=== PATIENT | male | born 1990 | race Caucasian/White ===

== ENCOUNTER 2017-09-07 00:30 | Emergency (ER) | payer MEDICAID ==
[~2017-09-07] VITALS: Ht 188 cm; Wt 137.9 kg
[2017-09-07 00:36] VITALS: BP 151/101
--- NOTE | 2017-09-07 00:40 | NUR ---
AMBULATED TO ER BED 6
--- NOTE | 2017-09-07 00:45 | NUR ---
DR. FOURNIER EVALUATING PATIENT AT BEDSIDE.
--- NOTE | 2017-09-07 00:46 | NUR ---
PATIENT IS A 27 Y/O MALE WHO PRESENTS TO THE ED C/O LEFT EYE PAIN. PT STATES, "MY EYE HAS BEEN HURTING SINCE SUNDAY." PT REPORTS 10/10 SHARP PAIN THAT DOES NOT RADIATE. NOTED ERYTHEMA TO THE LEFT EYE WITH CLEAR DRAINAGE. PERRLA. PT DENIES CP, SOB, N/V/D. PT AAOX4, RR EVEN/UNLABORED. PT REPOSITIONED FOR COMFORT, BED IN LOWEST POSITION. ER MD DR. FOURNIER NOTIFIED. WILL CONTINUE TO MONITOR.
[2017-09-07] MEDS ORDERED: FLUORESCEIN OPTH STRIP 1 MG ONE (00:57)
[2017-09-07] MEDS ORDERED: ERYTHROMYCIN 0.5% OPTH OINT 1 GM TUBE OP SCH (01:15)
[2017-09-07] MEDS ORDERED: TETRACAINE HCL/PF 0.5% OPTH 4 ML BTL ONE (01:16)
[2017-09-07] MEDS ORDERED: GENTAMICIN OP 0.3% 10.5 MG/3.5 GM TUBE OP ONE (01:20)
[2017-09-07] MEDS ORDERED: GENTAMICIN OP 0.3% 10.5 MG/3.5 GM TUBE ONE (01:27)
[2017-09-07 01:45] VITALS: BP 152/98
--- NOTE | 2017-09-07 01:45 | NUR ---
Patient discharged with v/s stable. Written and verbal after care instructions given and explained. Patient alert, oriented and verbalized understanding of instructions. Ambulatory with steady gait. All questions addressed prior to discharge. ID band removed. Patient advised to follow up with PMD. Rx of GARAMYCIN 0.3% given. Patient educated on indication of medication including possible reaction and side effects. Opportunity to ask questions provided and answered.
== END 2017-09-07 01:45 | disposition home or self-care (01) ==
LOC: MED 00:30
DX: S05.02XA Injury of conjunctiva and corneal abrasion without foreign body, left eye, initial encounter (principal); R03.0 Elevated blood-pressure reading, without diagnosis of hypertension; X58.XXXA Exposure to other specified factors, initial encounter; Y93.89 Activity, other specified; Y92.89 Other specified places as the place of occurrence of the external cause; Y99.8 Other external cause status
CPT/HCPCS: 99283

== ENCOUNTER 2021-12-10 16:39 | Emergency (ER) | payer MEDICAID, OTHER ==
[~2021-12-10] VITALS: Ht 185.4 cm; Wt 149.7 kg
[2021-12-10 16:46] VITALS: BP 158/95
--- NOTE | 2021-12-10 16:50 | NUR ---
PATIENT AMBULATED TO BED 1
[2021-12-10] MEDS ORDERED: NACL 0.9% 1,000 ML IV ONE (17:15)
[2021-12-10] MEDS ORDERED: AMPICILLIN/SULBACTAM 1.5 GM in NACL 0.9% 50 ML IV ONE (17:20)
[2021-12-10 17:41] LABS: BASOPHILS # (AUTO) 0.1 K/uL (0.00-0.22); BASOPHILS % (AUTO) 0.4 % (0.0-2.0); EOSINOPHILS # (AUTO) 0.1 K/uL (0-0.4); EOSINOPHILS % (AUTO) 0.5 % (0.0-4.0); HEMATOCRIT 44.1 % (36-52); HEMOGLOBIN 14.4 g/dL (12.0-18.0); LYMPHOCYTES # (AUTO) 1.8 K/uL (2.0-11.5); LYMPHOCYTES % (AUTO) 14.2 % (20.5-51.1); MEAN CORPUSCULAR HEMOGLOBIN 27 pg (27-31); MEAN CORPUSCULAR HGB CONC 33 g/dL (33-37); MEAN CORPUSCULAR VOLUME 81.6 fL (80-94); MONOCYTES # (AUTO) 1.2 K/uL (0.8-1.0); MONOCYTES % (AUTO) 9.4 % (1.7-9.3); NEUTROPHILS # (AUTO) 9.5 K/uL (1.8-7.7); NEUTROPHILS % (AUTO) 75.5 % (42.2-75.2); PLATELET COUNT (AUTO) 227 K/uL (140-450); RED CELL DISTRIBUTION WIDTH 14.1 % (11.6-13.7); WHITE BLOOD COUNT (AUTO) 12.5 K/uL (4.8-10.8)
[2021-12-10] MEDS ORDERED: AMPICILLIN/SULBACTAM 1.5 GM VIAL ONE (17:57)
[2021-12-10] MEDS ORDERED: HYDR12.51 PO ×3 (18:12→19:23)
[2021-12-10] MEDS ORDERED: AMOX-1000 PO ×3 (18:12→19:23)
[2021-12-10 18:19] LABS: ANION GAP 14.3 (8-16); CARBON DIOXIDE 25.7 mmol/L (21-32); CREATININE 0.9 mg/dL (0.6-1.3); TOTAL BILIRUBIN 0.4 mg/dL (0.0-1.0)
[2021-12-10] MEDS ORDERED: FURO-572 PO ×3 (18:27→19:23)
[2021-12-10] MEDS ORDERED: ACETAMINOPHEN EXTRA STRENGTH 500 MG TAB PO ONE (18:30)
[2021-12-10 18:52] VITALS: BP 124/70
--- NOTE | 2021-12-10 18:53 | NUR ---
Patient discharged with v/s stable. Written and verbal after care instructions given and explained. Patient verbalized understanding. Ambulatory with steady gait. All questions addressed prior to discharge. Advised to follow up with PMD.
--- NOTE | 2021-12-12 11:54 | NUR ---
LATE ENTRY- IV NORMAL SALINE DISCONTINUED AT 1853.
--- NOTE | 2021-12-12 11:55 | NUR ---
LATE ENTRY- IV UNASYN DISCONTINUED AT 1853.
== END 2021-12-10 18:52 | disposition home or self-care (01) ==
LOC: MED 16:39
DX: J02.9 Acute pharyngitis, unspecified (principal); J36 Peritonsillar abscess; I10 Essential (primary) hypertension; R60.9 Edema, unspecified; F17.200 Nicotine dependence, unspecified, uncomplicated; F15.90 Other stimulant use, unspecified, uncomplicated; Z71.6 Tobacco abuse counseling; Z79.899 Other long term (current) drug therapy
CPT/HCPCS: 36415; 71045; 80053; 82948; 83605; 83880; 85025; 87040; 87081; 96365; 99284; J0295; J7030

== ENCOUNTER 2022-06-18 15:54 | Emergency (ER) | payer SELFPAY ==
[~2022-06-18 15:54] MED LIST: AMOX-1000 PO; FURO-572 PO; HYDR12.51 PO
--- NOTE | 2022-06-18 16:25 | NUR ---
CALLED PT NOT FOUND IN LOBBY
--- NOTE | 2022-06-18 17:00 | NUR ---
NOT FOUND IN LOBBY
--- NOTE | 2022-06-18 17:15 | NUR ---
PATIENT LEFT WITHOUT BEING SEEN BY DR. MEDINA. NO FURTHER CARE PROVIDED FOR PATIENT.
== END 2022-06-18 16:25 | disposition left against medical advice (07) ==
LOC: MED 15:54
DX: L02.419 Cutaneous abscess of limb, unspecified (principal); Z53.21 Procedure and treatment not carried out due to patient leaving prior to being seen by health care provider

== ENCOUNTER 2024-01-09 06:15 | Observation (INO) | payer OTHER ==
[~2024-01-09] VITALS: Ht 188 cm; Wt 189.1 kg
[2024-01-09] VITALS (7 sets, daily range): BP systolic 114–125; BP diastolic 78–98; PULSE 78–117; RESP 19–24; TEMP 97.6–98.7; O2SAT 94–99
[2024-01-09 09:12] LABS: BASOPHILS # (AUTO) 0.1 K/uL (0.00-0.22); BASOPHILS % (AUTO) 0.9 % (0.0-2.0); EOSINOPHILS # (AUTO) 0.1 K/uL (0-0.4); EOSINOPHILS % (AUTO) 1.1 % (0.0-4.0); HEMATOCRIT 32.9 % (36-52); HEMOGLOBIN 9.9 g/dL (12.0-18.0); LYMPHOCYTES # (AUTO) 2.4 K/uL (2.0-11.5); MEAN CORPUSCULAR HEMOGLOBIN 20 pg (27-31); MEAN CORPUSCULAR HGB CONC 30 g/dL (33-37); MEAN CORPUSCULAR VOLUME 64.5 fL (80-94); MONOCYTES # (AUTO) 0.5 K/uL (0.8-1.0); MONOCYTES % (AUTO) 4.6 % (1.7-9.3); NEUTROPHILS # (AUTO) 8.4 K/uL (1.8-7.7); NEUTROPHILS % (AUTO) 72.4 % (42.2-75.2); PLATELET COUNT (AUTO) 330 K/uL (140-450); RED BLOOD CELL COUNT(AUTO) 5.09 MIL/uL (4.20-6.10); RED CELL DISTRIBUTION WIDTH 17.5 % (11.6-13.7); WHITE BLOOD COUNT (AUTO) 11.6 K/uL (4.8-10.8)
[2024-01-09 10:11] LABS: ALANINE AMINOTRANSFERASE 32 U/L (12-78); ALBUMIN 3.5 g/dL (3.4-5.0); ALKALINE PHOSPHATASE 71 U/L (50-136); ANION GAP 11.7 (8-16); ASPARTATE AMINOTRANSFERASE 22 U/L (15-37); CALCIUM 8.5 mg/dL (8.5-10.1); CHLORIDE 103 mmol/L (98-107); GFR ARICAN-AMERICAN 110 mL/min (>90); GFR NON ARICAN-AMERICAN 91 mL/min (>90); GLUCOSE 169 mg/dL (74-106); POTASSIUM 3.7 mmol/L (3.5-5.1); SODIUM SERUM 138 mmol/L (136-145); TOTAL BILIRUBIN 1.1 mg/dL (0.0-1.0); TOTAL PROTEIN, SERUM 7.4 g/dL (6.4-8.2); UREA NITROGEN, BLOOD 13 mg/dL (7-18)
[2024-01-09] MEDS: AZITHROMYCIN 500 MG in DEXTROSE 5% 250 ML IV ONE (13:45)
[2024-01-09] MEDS ORDERED: AZITHROMYCIN 500 MG INJ VIAL IV ONE (13:58)
[2024-01-09] MEDS ORDERED: cefTRIAXone 1,000 MG VIAL ONE (13:59)
[2024-01-09] MEDS ORDERED: lisinopriL 20 MG TAB PO SCH (14:06)
[2024-01-09] MEDS: FUROSEMIDE 20 MG/2 ML VIAL IVP ONE (14:11)
[2024-01-09] MEDS ORDERED: ACETAMINOPHEN 325 MG TAB PO PRN (14:25)
[2024-01-09] MEDS ORDERED: LORazepam 1 MG TAB PO PRN (14:25)
[2024-01-09] MEDS ORDERED: POTASSIUM CHLORIDE 10 MEQ TABER PO PRN (14:25)
[2024-01-09] MEDS ORDERED: MORPHINE SULFATE 2 MG/ML SYR IVP PRN (14:25)
[2024-01-09] MEDS ORDERED: ONDANSETRON 4 MG/2 ML VIAL IVP PRN (14:25)
[2024-01-09] MEDS ORDERED: HYDROcodone/APAP 5/325 MG 1 TAB TAB PO PRN (14:25)
[2024-01-09] MEDS: lisinopriL 10 MG TAB PO SCH (14:57)
[2024-01-09] MEDS ORDERED: FUROSEMIDE 40 MG/4 ML VIAL IVP SCH (21:00)
[2024-01-09] MEDS: FUROSEMIDE 20 MG/2 ML VIAL IVP SCH (21:29)
[2024-01-10] VITALS (9 sets, daily range): BP systolic 96–150; BP diastolic 66–88; PULSE 98–112; RESP 18–20; TEMP 97.7–98.7; O2SAT 95–100
[2024-01-10 06:46] LABS: BASOPHILS # (AUTO) 0.1 K/uL (0.00-0.22); BASOPHILS % (AUTO) 0.7 % (0.0-2.0); EOSINOPHILS # (AUTO) 0.1 K/uL (0-0.4); EOSINOPHILS % (AUTO) 1.2 % (0.0-4.0); HEMOGLOBIN 10.3 g/dL (12.0-18.0); LYMPHOCYTES # (AUTO) 2.7 K/uL (2.0-11.5); LYMPHOCYTES % (AUTO) 23.9 % (20.5-51.1); MEAN CORPUSCULAR HEMOGLOBIN 20 pg (27-31); MEAN CORPUSCULAR HGB CONC 30 g/dL (33-37); MEAN CORPUSCULAR VOLUME 64.9 fL (80-94); MONOCYTES # (AUTO) 0.8 K/uL (0.8-1.0); MONOCYTES % (AUTO) 6.7 % (1.7-9.3); NEUTROPHILS # (AUTO) 7.6 K/uL (1.8-7.7); NEUTROPHILS % (AUTO) 67.5 % (42.2-75.2); PLATELET COUNT (AUTO) 337 K/uL (140-450); RED BLOOD CELL COUNT(AUTO) 5.24 MIL/uL (4.20-6.10); RED CELL DISTRIBUTION WIDTH 17.2 % (11.6-13.7); WHITE BLOOD COUNT (AUTO) 11.3 K/uL (4.8-10.8)
[2024-01-10 06:57] LABS: ALBUMIN 3.4 g/dL (3.4-5.0); ANION GAP 13.5 (8-16); CALCIUM 8.6 mg/dL (8.5-10.1); CARBON DIOXIDE 28.9 mmol/L (21-32); POTASSIUM 4.4 mmol/L (3.5-5.1); TOTAL BILIRUBIN 1.4 mg/dL (0.0-1.0); TOTAL PROTEIN, SERUM 7.5 g/dL (6.4-8.2)
[2024-01-10] MEDS: FUROSEMIDE 20 MG/2 ML VIAL IVP SCH (11:55)
[2024-01-10] MEDS: LOSARTAN 25 MG TAB PO SCH (11:55)
[2024-01-10] MEDS: FUROSEMIDE 40 MG/4 ML VIAL IVP SCH (17:53)
[2024-01-10] MEDS ORDERED: HYDR-3293 PO (20:26)
[2024-01-10] MEDS ORDERED: FURO-570 PO (20:26)
[2024-01-10] MEDS ORDERED: POTA10TA70 PO (20:26)
== END 2024-01-10 21:40 | disposition home or self-care (01) ==
LOC: MED 06:15 → MTU 14:28
PROVIDERS: ADMIT Student in an Organized Health Care Education/Training Program; ATTEND Hospitalist
DX: I11.0 Hypertensive heart disease with heart failure (principal); I50.31 Acute diastolic (congestive) heart failure; E78.5 Hyperlipidemia, unspecified; J96.01 Acute respiratory failure with hypoxia; G47.33 Obstructive sleep apnea (adult) (pediatric); E66.01 Morbid (severe) obesity due to excess calories; Z68.43 Body mass index [BMI] 50.0-59.9, adult
CPT/HCPCS: 36415; 71045; 71275; 80053; 83880; 84484; 85025; 85379; 87081; 93005; 93307; 96365; 96366; 96367; 96372; 96375; 96376; 99285; G0378; J0456; J0696; J1644; J1940; J7060; Q9967